=== PATIENT | male | born 1950 | race Caucasian/White ===

== ENCOUNTER 2018-02-26 13:52 | Observation (INO) ==
[2018-02-26] MEDS ORDERED: SALINE FLUSH 10ml SYRINGE IVF PRN (14:09)
--- NOTE | 2018-02-26 14:10 | Emergency Department Report ---
Chest Pain HPI - General Chief Complaint: Chest Pain Stated Complaint: cp/soa Time Seen by Provider: 02/26/18 14:08 Source: patient Mode of arrival: ambulatory Limitations: no limitations - History of Present Illness HPI narrative: Patient is a 67-year-old male, history of dialysis, history of anginal symptoms once every 3 weeks or so lasting a few minutes. Patient finished his dialysis normally this morning developed some left-sided anterior chest pain/pressure no radiation no nausea. Patient went to work however his chest pain worsened and he became mildly nauseous. Patient's pain ramped as high as 8/10 while at work , was given fentanyl and nitroglycerin by EMS brought to the ER for evaluation. On arrival patient's pain has improved somewhat currently 2/10 left-sided anterior no real radiation, possibly slightly worse with inspiration. MD complaint: chest pain Occurred At: work Onset (ago): hour(s) - Related Data Home Medications Medication Instructions Recorded Confirmed Carvedilol 25 mg PO BID #0 12/12/15 02/26/18 Amlodipine [Norvasc] 5 mg PO BID 02/26/18 02/26/18 Furosemide [Lasix] 40 mg PO DAILY 02/26/18 02/26/18 Sevelamer Carbonate [Renvela] 1,600 mg PO TID 02/26/18 02/26/18 Allergies Allergy/AdvReac Type Severity Reaction Status Date / Time No Known Allergies Allergy Verified 02/26/18 14:19 Review of Systems Constitutional: Denies: fever, chills, weakness Eyes: Denies: eye pain, eye discharge ENT: Denies: ear pain, throat pain, dental pain Cardiovascular: Reports: chest pain, palpitations, dyspnea on exertion. Denies : edema, syncope Respiratory: Denies: cough Gastrointestinal: Denies: abdominal pain, nausea, vomiting Genitourinary: Denies: urgency, dysuria, frequency Musculoskeletal: Denies: back pain, joint swelling Neurological: Denies: headache, weakness Psychiatric: Denies: anxiety, depression Endocrine: Denies: fatigue, heat or cold intolerance Hematological/Lymphatic: Denies: easy bleeding Allergic/Immunologic: Denies: facial swelling PFSH Patient Stated Medical History Angina Yes Hypertension Yes Medical History Updates: Angina. Renal failure requiring dialysis - Social History Substance use type: does not use Alcohol intake frequency: does not drink Physical Exam - Limitations Limitations: no limitations - General General appearance: alert, in no apparent distress - Eye Eye exam: Present: PERRL - ENT ENT exam: Present: normal oropharynx, mucous membranes moist, TM's normal bilaterally - Neck Neck exam: Present: full ROM, trachea midline. Absent: tenderness - Chest Chest inspection: Present: normal inspection, symmetric chest wall rise. Absent : tenderness - Respiratory Respiratory exam: Present: normal lung sounds bilaterally. Absent: respiratory distress, wheezes, stridor - Cardiovascular Cardiovascular exam: Present: regular rate, irregular rhythm, normal heart sounds - Abdominal Exam Abdominal exam: Present: soft, normal bowel sounds. Absent: distention, tenderness - Back Exam Back exam: Present: full ROM. Absent: tenderness, CVA tenderness (R), CVA tenderness (L) - Skin Skin exam: Present: warm, dry - Neurological Exam Neurological exam: Present: alert, oriented X3 - Psychiatric Psychiatric exam: Present: normal affect, normal mood Course Vital Signs Temperature 99 F 02/26/18 13:55 Pulse Rate 90 02/26/18 13:55 Respiratory Rate 19 02/26/18 13:55 Blood Pressure 177/102 H 02/26/18 13:55 Pulse Oximetry 88 L 02/26/18 13:55 Temperature 99 F 02/26/18 13:55 Pulse Rate 91 02/26/18 14:20 Respiratory Rate 25 H 02/26/18 14:51 Blood Pressure 154/81 H 02/26/18 14:20 Pulse Oximetry 95 02/26/18 14:52 Chest Pain - [facility] Narrative Medical decision making narrative: Discuss case with Dr. Horowitz, cardiology. Patient's symptoms are most likely not coronary in origin, however he will admit observation. Patient is a dialysis patient, however we'll not need further dialysis until Thursday. Dr. Horowitz is comfortable admitting patient to [facility]. - Differential Diagnosis Likely: fracture of rib, pneumothorax, stable angina, unstable angina pectoris, atypical chest pain, st elevation myocardial infarction, costochondritis, chest pain, biliary colic - Medical Records Data Attestation: I reviewed the patient's medical records. - Lab Data Attestation: I reviewed the patient's lab results. Result diagrams: 02/26/18 14:13 02/26/18 14:13 Lab Results 04/13/18 04/13/18 Range/Units 14:13 14:13 WBC 6.9 (4.5-11.0) T/MM3 RBC 3.51 L (4.50-5.90) M/MM3 Hgb 10.3 L (13.5-17.5) GM/DL Hct 30.5 L (41-53) % MCV 86.9 (80-100) UM3 MCH 29.3 (26-34) UUG MCHC 33.8 (31-37) GM/DL RDW Std Deviation 43.0 (36.9-50.2) FL Plt Count 135 (130-400) T/MM3 MPV 10.6 (9.4-12.4) UM3 Immature Gran % (Auto) 0.1 (0.0-0.5) % Neut % (Auto) 79.1 H (33-66) % Lymph % (Auto) 9.4 L (23-45) % [place] % (Auto) 9.4 H (0-9.0) % Eos % (Auto) 1.4 (0-4) % Baso % (Auto) 0.6 (0-2) % Neut # (Auto) 5.5 (1.8-7.7) T/MM3 Lymph # (Auto) 0.7 L (1-4.8) T/MM3 [place] # (Auto) 0.7 (0-0.8) T/MM3 Eos # (Auto) 0.1 (0-0.5) T/MM3 Baso # (Auto) 0.0 (0-0.2) T/MM3 Abs Immat Gran (auto) 0.01 (0.00-0.03) T/MM3 Turbidity < 20 (0-20) Sodium 143 (134-144) MEQ/L Potassium 3.9 (3.6-5) MEQ/L Chloride 97 L (98-107) MEQ/L Carbon Dioxide 33 H (22-30) MEQ/L Anion Gap 13 (5-15) meq/L BUN 28.0 H (9-20) MG/DL Creatinine 3.4 H (0.8-1.5) mg/dL GFR Calculation 18 BUN/Creatinine Ratio 8 (6-26) RATIO Glucose 135 H (75-110) MG/DL Calculated Osmolality 283 H (261-280) MOSM/KG Calcium 9.1 (8.4-10.2) MG/DL Magnesium 2.2 (1.6-2.3) MG/DL Total Bilirubin 1.10 (0.20-1.30) MG/DL Icterus Index < 2 (0-7) AST 21 (17-59) U/L ALT 14 (1-50) U/L Alkaline Phosphatase 84 (38-126) U/L Troponin I 0.048 (0-0.12) ng/ml NT-Pro-B Natriuret Pep 54844 H (0-175) pg/mL Total Protein 6.9 (6.3-8.2) g/dL Albumin 4.0 (3.5-5.0) g/dL Globulin 2.9 (2.4-3.6) G/DL Albumin/Globulin Ratio 1.4 (1.1-2.2) RATIO TSH 2.62 (0.47-4.68) mIU/L Specimen Hemolysis 16 (0-25) - Radiology Data Attestation: I reviewed the patient's radiology results. Chest x-ray increasing interstitial markings consistent with edema and no arnold infiltrate - EKG Data EKG #1 EKG attestation: Yes: I reviewed and interpreted this EKG. EKG shows normal: sinus rhythm Rate: normal Rhythm: NSR [place]/QRS: normal Ectopy: PAC Interpretation: no acute changes (reviewed with Dr. Horowitz, cardiology) Disposition Clinical Impression: Chest pain Qualifiers: Chest pain type: chest pain due to myocardial ischemia Ischemic chest pain type : unspecified angina pectoris type Qualified Code(s): I25.9 - Chronic ischemic heart disease, unspecified Disposition: 02 To [facility] Condition: Stable Prescriptions: No Action Sevelamer Carbonate [Renvela] 1,600 mg PO TID Amlodipine [Norvasc] 5 mg PO BID Carvedilol 25 mg PO BID #0 Furosemide [Lasix] 40 mg PO DAILY Referrals: Abhishek Laughlin MD [Physician] - Time of Disposition: 15:05 - Seen By: physician
[2018-02-26] MEDS: NITROGLYCERIN 0.4 MG SUBLINGUAL TABLET SL PRN ×3 (14:12→14:37)
--- OUTSIDE RECORDS SUMMARY | 2018-02-26 14:23 | External Medical Summary | Continuity of Care Document ---
:1950 Demographics Phone Unavailable Preferred Language Unknown Marital Status Unknown Episcopalian Affiliation Unknown Race Unknown Ethnic Group Unknown Author Organization [facility] Allergies Active Description Code Type Severity Reaction Onset Reported/ Identified Relationship Clinical to Patient Status Yes No Known Drug N/A N/A 12/30/2013 Allergies Aller gy Yes No Known Drug N/A N/A 12/30/2013 Drug Aller Allergies gy Yes No Known Food N/A N/A 12/30/2013 Food Aller Allergies gy Yes No Known NKMA N/A N/A 02/05/2015 Medication Allergies Medications There is no data. Problems Date Dx Attending Type Code Diagnosis Diagnosed By Coded 12/30/2013 Lor OROZCO, Final 285.9 ANEMIA NOS Rick 12/30/2013 Lor OROZCO, Final 394.9 MITRAL VALVE DIS NEC Rick NOS 12/30/2013 Lor OROZCO, Final 403.90 HTN CKD NOS I-IV/NOS Rick 12/30/2013 Lor OROZCO, Final 425.4 PRIM CARDIOMYOPATHY Rick NEC 12/30/2013 Lor OROZCO, Final 428.0 CHF NOS Rick 12/30/2013 Lor OROZCO, Final 428.23 AC CHR SYSTOLIC HF Rick 12/30/2013 Lor OROZCO, Final 458.0 ORTHOSTATIC Rick HYPOTENSION 12/30/2013 Lor OROZCO, Final 584.9 ACUTE KIDNEY FAILURE Rick NOS 12/30/2013 Lor OROZCO, Final 585.4 CKD-STAGE IV Rick 12/30/2013 Lor OROZCO, Admitting 786.05 SHORTNESS OF BREATH Rick 02/13/2015 585.9 Chronic kidney De, Oziel L disease, unspecified 11/26/2016 Denny OROZCO, Ese Griggs 585.6 End stage renal K disease 11/26/2016 Denny OROZCO, Ese Griggs 477.9 Congestion K 11/26/2016 Denny OROZCO, Ese Griggs 401.1 HTN K 11/26/2016 Denny OROZCO, Ese Griggs 380.4 External cerumen K impaction 11/02/2017 Denny OROZCO, Ese Griggs 373.11 Hordeolum of K external eyelid Procedures Code [place] [address] Fluoroscopic Oziel De 02/22/2015 guidance for central venous access device placement, replacement (catheter only or comp 18466 Insertion of Oziel De 11/29/2015 tunneled centrally inserted central venous catheter, without subcutaneous port or pump; [id number] Office visit 11/26/2016 - new pt, level 2 74923 11/02/2017 Office/outpatient visit; established patient, level 3 Results There is no data. Encounters ACCT No. Visit Discharge Status Pt. Type Provider Facility Loc./Unit Complaint Date/Time [id number] 05/16/2015 Document 56 12:28:00 Registrati on [id number] 12/30/2013 01/02/2014 DIS Inpatient [facility] 3 10:53:00 15:11:00 , [facility] on Emil [id number] 11/02/2017 11/02/2017 DIS Outpatient Fast , [facility] H 11:26:46 11:43:28 Ese Boles on [id number] 05/07/2016 Document 01 18:02:42 Registrati on
--- NOTE | 2018-02-26 14:34 | XRay Report ---
Indication: Chest Pain XR chest 1V: Comparison: 12/12/2015 Technique: Single upright portable chest Findings: Patient shows mild cardiomegaly with no significant congestive changes. A few small linear density seen in the left chest suggesting mild subsegmental atelectasis. No masses, consolidations or significant pleural effusions are seen. Impression: Patient demonstrates slightly increased interstitial prominence and mild cardiac prominence which has increased slightly since the previous examination. .
[2018-02-26 15:45] VITALS: BMI 30.6
--- NOTE | 2018-02-26 15:50 | Cardiology History & Physical ---
History of Present Illness Chief complaint: chest pain HPI: Jaylon is a 67 year old male who is known to Dr. Horowitz a history of CM with EF of 40% 01/2015, NR mitral regurgitation, CKD on dialysis, HTN, HLD and PHTN who finished his dialysis normally this morning and developed some left-sided anterior chest pain/pressure without radiation or nausea. He went to work however his chest pain worsened and he became mildly nauseous. His pain increased as high as 8/10 while at work, was given fentanyl and nitroglycerin by EMS brought to the ED for evaluation. On arrival patient's pain was improved somewhat but rated 2/10 left-sided anterior no real radiation, possibly slightly worse with inspiration. Dr Horowitz was consulted and accepted for observation admission to rule out NV Last Echo: 01/2015: EF 40%, LVH, dilated LA, RA and LV, PHTN with PAP 90mmHg, Ao sclerosis, moderate to severe TR, moderate MR Review of Systems - Constitutional Constitutional: Absent: chills, fatigue, fever(s) - EENMT Eyes: Absent: change in vision Balance: Absent: vertigo Mouth/Throat: Absent: sore throat - Cardiovascular Cardiovascular: Present: chest pain. Absent: palpitations, syncope, dyspnea on exertion, orthopnea, edema, heart murmur Rhythm: Absent: abnormal rhythm Vascular: Absent: pedal edema - Respiratory Respiratory: Absent: cough, dyspnea, dyspnea on exertion - Gastrointestinal Gastrointestinal: Present: nausea. Absent: abdominal pain, constipation, diarrhea, vomiting - Genitourinary Genitourinary: Absent: dysuria - Integumentary/Breasts Integumentary: Absent: rash - Neurological Neurological: Absent: dizziness - Endocrine Endocrine: Absent: palpitations [facility] Medical History Updates: CM. HTN. HLD. Renal failure requiring dialysis Family History: Maternal side - history of multiple CABG, youngest NV at age 37. Father - Heart valve disease - Social History Smoking status: Former smoker Substance use type: does not use Alcohol intake frequency: does not drink Household members: spouse Current occupational status: employed Current residence: Apartment/Private Home Medications Home Medications Medication Instructions Recorded Confirmed Type Carvedilol 25 mg PO BID #0 12/12/15 02/26/18 History Amlodipine [Norvasc] 5 mg PO BID 02/26/18 02/26/18 History Furosemide [Lasix] 40 mg PO DAILY 02/26/18 02/26/18 History Sevelamer Carbonate [Renvela] 1,600 mg PO TID 02/26/18 02/26/18 History Allergies Allergy/AdvReac Type Severity Reaction Status Date / Time No Known Allergies Allergy Verified 02/26/18 14:19 Exam Vital signs: Temperature 99 F 02/26/18 13:55 Pulse Rate 91 02/26/18 14:20 Respiratory Rate 25 H 02/26/18 14:51 Blood Pressure 154/81 H 02/26/18 14:20 Pulse Oximetry 95 02/26/18 14:52 - Constitutional no acute distress, well developed, cooperative - Routine HEENT Exam Head: Present: normocephalic ENT: Present: mucous membranes moist - Routine Neck Exam Absent: JVD, carotid bruit - Routine Chest/Breast/Axilla Exam Chest wall: Absent: tenderness - Routine Respiratory Exam Present: CTA bilaterally. Absent: dyspnea, rales, wheezes - Routine Cardiovascular Exam Present: no murmur, irregular rhythm - Routine Abdominal Exam Present: soft, non tender - Routine Extremities Exam Present: no edema - Routine Skin Exam Present: intact, dry, warm - Routine Neurological Exam Present: alert, oriented X3 - Routine Psychiatric Exam Present: normal affect, normal thought process Results 02/27/18 02:19 02/27/18 02:19 Intake and Output 02/26/18 02/26/18 02/26/18 06:59 14:59 22:59 Other: Weight 201 lb 8.04 oz Patient Weight 02/27/18 06:59 Weight 201 lb 8.04 oz - Imaging and Cardiology Imaging & Cardiology Narrative: Date of Exam: 02/26/18 Ordering Provider: Duy Landa MD Type of Exam(s): XR chest 1V Reason for Exam(s): Chest Pain Indication: Chest Pain XR chest 1V: Comparison: 12/12/2015 Technique: Single upright portable chest Findings: Patient shows mild cardiomegaly with no significant congestive changes. A few small linear density seen in the left chest suggesting mild subsegmental atelectasis. No masses, consolidations or significant pleural effusions are seen. Impression: Patient demonstrates slightly increased interstitial prominence and mild cardiac prominence which has increased slightly since the previous examination. 02/26/18 16:17 EKG interpretations - EKG EKG results cardiology: sinus rhythm - Dysrhythmias Supraventricular dysrhythmia: atrial premature complexes (with block) Hospital Course This is a general summary of the patient's hospital course. For more details refer to the complete medical record. Time spent with patient: 25 - 35 minutes Resuscitation Status: Full Code Assessment and Plan - Attestation Attestation Narrative: 03/02/18 07:56 Recommendation After examining the patient I agree with the above assessment. I am involved in the formulation of the patient's plan of care. - Assessment and Plan (1) Chest pain Status: Acute Trend serial troponin - EKG with SR and PACs with block - repeat EKG in am - Nitro SL prn chest pain (2) Cardiomyopathy Status: Chronic Last known EF 40% - Continue home Carvedilol (3) Chronic kidney disease Status: Chronic had dialysis today - Renal diet - Monitor renal and electrolytes (4) Essential (primary) hypertension Status: Acute Continue home Amlodipine and Lasix (5) Non-rheumatic mitral regurgitation Status: Chronic (6) Mixed hyperlipidemia Status: Chronic
[2018-02-26] MEDS: --POM--CARVEDILOL 25 MG TABLET PO SCH (18:22)
[2018-02-26] MEDS: --POM--AMLODIPINE 5 MG TABLET PO SCH (20:23)
[2018-02-26] MEDS: SEVELAMER PO SCH (20:23)
[2018-02-27] MEDS: --POM--CARVEDILOL 25 MG TABLET PO SCH (08:18)
[2018-02-27] MEDS: SEVELAMER PO SCH (08:19)
[2018-02-27] MEDS: --POM--AMLODIPINE 5 MG TABLET PO SCH (08:19)
[2018-02-27] MEDS ORDERED: FUROSEMIDE 40 MG TABLET PO SCH (09:00)
[2018-02-27 09:17] VITALS: RESP 18
[2018-02-27 10:04] VITALS: O2SAT 91
[2018-02-27 11:31] VITALS: BP 138/89; PULSE 74; TEMP 97.5
--- NOTE | 2018-02-27 12:06 | Discharge Summary ---
<Lissa Solo - Last Filed: 03/02/18 10:07> Discharge Information Date of admission: 02/26/18 15:40 Anticipated date of discharge: 02/27/18 Attending Physician: Rick Horowitz MD Primary care physician: Konstantin Baldwin MD - Discharge Diagnosis (1) Chest pain Status: Acute (2) Cardiomyopathy Status: Chronic (3) Chronic kidney disease Status: Chronic (4) Essential (primary) hypertension Status: Acute (5) Non-rheumatic mitral regurgitation Status: Chronic (6) Mixed hyperlipidemia Status: Chronic chest pain - Laboratory Labs: 02/27/18 02:19 02/27/18 02:19 History of Present Illness HPI: Jaylon is a 67 year old male who is known to Dr. Horowitz a history of CM with EF of 40% 01/2015, NR mitral regurgitation, CKD on dialysis, HTN, HLD and PHTN who finished his dialysis normally this morning and developed some left-sided anterior chest pain/pressure without radiation or nausea. He went to work however his chest pain worsened and he became mildly nauseous. His pain increased as high as 8/10 while at work, was given fentanyl and nitroglycerin by EMS brought to the ED for evaluation. On arrival patient's pain was improved somewhat but rated 2/10 left-sided anterior no real radiation, possibly slightly worse with inspiration. Dr Horowitz was consulted and accepted for observation admission to rule out ND Last Echo: 01/2015: EF 40%, LVH, dilated LA, RA and LV, PHTN with PAP 90mmHg, Ao sclerosis, moderate to severe TR, moderate MR Hospital Course This is a general summary of the patient's hospital course. For more details refer to the complete medical record. Hospital course: Jaylon had no further chest pain and feels like it was related to taking off too much fluid when dialyzed. Time spent with patient: 25 - 35 minutes Resuscitation Status: Full Code Exam Vital signs: Temperature 97.5 F 02/27/18 11:31 Pulse Rate 74 02/27/18 11:31 Respiratory Rate 18 02/27/18 11:31 Blood Pressure 138/89 02/27/18 11:31 Pulse Oximetry 91 02/27/18 11:31 - Constitutional no acute distress, well nourished, cooperative - Routine HEENT Exam Head: Present: normocephalic ENT: Present: mucous membranes moist - Routine Neck Exam Absent: JVD, carotid bruit - Routine Chest/Breast/Axilla Exam Chest wall: Absent: tenderness - Routine Respiratory Exam Present: CTA bilaterally. Absent: rales, wheezes - Routine Cardiovascular Exam Present: no murmur, irregular rhythm - Routine Abdominal Exam Present: soft, non tender - Routine Extremities Exam Present: no edema - Routine Skin Exam Present: intact, dry, warm - Routine Neurological Exam Present: alert, oriented X3 - Routine Psychiatric Exam Present: normal affect, normal thought process Results 02/27/18 02:19 02/27/18 02:19 Cardiac Enzymes 02/26/18 02/27/18 02/27/18 Range/Units 20:44 02:19 08:02 Troponin I 0.050 0.047 0.046 (0-0.12) ng/ml Lipids 02/27/18 Range/Units 02:19 Triglycerides 78 (40-160) mg/dL Cholesterol 144 (132-199) mg/dL HDL Cholesterol 38 L (40-60) mg/dL Cholesterol/HDL Ratio 3.8 (0-5.0) RATIO CBC 02/27/18 Range/Units 02:19 WBC 7.2 (4.5-11.0) T/MM3 RBC 3.50 L (4.50-5.90) M/MM3 Hgb 10.2 L (13.5-17.5) GM/DL Hct 30.8 L (41-53) % Plt Count 120 L (130-400) T/MM3 Comprehensive Metabolic Panel 02/27/18 Range/Units 02:19 Sodium 140 (134-144) MEQ/L Potassium 4.0 (3.6-5) MEQ/L Chloride 97 L (98-107) MEQ/L Carbon Dioxide 28 (22-30) MEQ/L BUN 41.0 H D (9-20) MG/DL Creatinine 4.6 H D (0.8-1.5) mg/dL Glucose 103 (75-110) MG/DL Calcium 9.3 (8.4-10.2) MG/DL Intake and Output 02/26/18 02/27/18 02/27/18 22:59 06:59 14:59 Intake Total 240 / 240 Output Total 325 / 325 100 / 100 Balance -85 / -85 -100 / -100 Intake: Oral 240 / 240 Output: Urine 325 / 325 100 / 100 Other: Urine Appearance Clear Urine Color Yellow Weight 201 lb 8.04 oz 204 lb 9.423 oz Patient Weight 02/28/18 06:59 Weight 204 lb 9.423 oz - Imaging and Cardiology Imaging & Cardiology Narrative: = = = = = = = = = = = = = = = = = = = = = = = = = = = = = = = = = = = = = = = = = = = = = = = = = = = = = = = = = = = Date of Exam: 02/26/18 Ordering Provider: Duy Landa MD Type of Exam(s): XR chest 1V Reason for Exam(s): Chest Pain Indication: Chest Pain XR chest 1V: Comparison: 12/12/2015 Technique: Single upright portable chest Findings: Patient shows mild cardiomegaly with no significant congestive changes. A few small linear density seen in the left chest suggesting mild subsegmental atelectasis. No masses, consolidations or significant pleural effusions are seen. Impression: Patient demonstrates slightly increased interstitial prominence and mild cardiac prominence which has increased slightly since the previous examination. 02/27/18 12:12 Discharge Plan - Med Rec/Dispo Referrals/Follow Up: Rick Horowitz MD [Physician] - 3 Weeks Truv Instructions: Angina (DC) Prescriptions: Continue Sevelamer Carbonate [Renvela] 1,600 mg PO TID Amlodipine [Norvasc] 5 mg PO BID Carvedilol 25 mg PO BID #0 Furosemide [Lasix] 40 mg PO DAILY - Disposition 01 Discharged Home, Self-Care - Dismissal Complete Discharge Instructions are:: Complete <Rick Horowitz - Last Filed: 03/03/18 13:31> Discharge Information Date of admission: 02/26/18 15:40 Attending Physician: Rick Hoorwitz MD Primary care physician: Konstantin Baldwin MD - Discharge Diagnosis (1) Chest pain Status: Acute (2) Cardiomyopathy Status: Chronic (3) Non-rheumatic mitral regurgitation Status: Chronic (4) Chronic kidney disease Status: Chronic (5) Essential (primary) hypertension Status: Acute (6) Mixed hyperlipidemia Status: Chronic - Laboratory Labs: 02/27/18 02:19 02/27/18 02:19 Hospital Course This is a general summary of the patient's hospital course. For more details refer to the complete medical record. Exam Vital signs: Temperature 97.5 F 02/27/18 11:31 Pulse Rate 74 02/27/18 11:31 Respiratory Rate 18 02/27/18 11:31 Blood Pressure 138/89 02/27/18 11:31 Pulse Oximetry 91 02/27/18 11:31 Results 02/27/18 02:19 02/27/18 02:19 Attestation Narriative - Attestation Attestation Narrative: Patient was examined by my RISK MANAGEMENT ANALYST, Lissa Solo and discussed finding with me. Clinical record reviewed remotely and together we decided on the patient's plan of care
== END 2018-02-27 13:02 | disposition home or self-care (01) ==
LOC: SRG 13:52 → ED 13:52
PROVIDERS: ADMIT Internal Medicine Cardiovascular Disease; ATTEND Internal Medicine Cardiovascular Disease